=== PATIENT | female | born 2000 | race Caucasian/White ===

== ENCOUNTER 2023-09-09 13:12 | Emergency (ER) | payer MEDICAID, OTHER ==
[~2023-09-09] VITALS: Ht 177.8 cm; Wt 59.7 kg
[2023-09-09 14:37] VITALS: BP 132/66; PULSE 122; RESP 16; TEMP 99.3; O2SAT 98
[2023-09-09] MEDS ORDERED: CEPH500C PO (14:58)
[2023-09-09] MEDS ORDERED: NAPR-746 PO (14:58)
== END 2023-09-09 15:05 | disposition home or self-care (01) ==
LOC: ER 13:12
DX: J03.90 Acute tonsillitis, unspecified (principal); L04.0 Acute lymphadenitis of face, head and neck; Z79.899 Other long term (current) drug therapy

== ENCOUNTER 2023-09-17 07:32 | Emergency (ER) | payer MEDICAID ==
[~2023-09-17] VITALS: Ht 177.8 cm; Wt 59.6 kg
[~2023-09-17 07:32] MED LIST: CEPH500C PO; NAPR-746 PO
[2023-09-17 08:07] VITALS: BP 101/74; PULSE 99; RESP 18; TEMP 98.1; O2SAT 98
[2023-09-17] MEDS: cefTRIAXone SOD 1,000 MG VL IM ONE (08:24)
== END 2023-09-17 08:42 | disposition home or self-care (01) ==
LOC: ER 07:32
DX: O26.891 Other specified pregnancy related conditions, first trimester (principal); J03.90 Acute tonsillitis, unspecified; Z79.1 Long term (current) use of non-steroidal anti-inflammatories (NSAID); Z3A.01 Less than 8 weeks gestation of pregnancy
CPT/HCPCS: 96372; 99283; J0696

== ENCOUNTER 2023-09-23 07:49 | Emergency (ER) | payer MEDICAID ==
[~2023-09-23] VITALS: Ht 177.8 cm; Wt 60.2 kg
[2023-09-23] MEDS ORDERED: AZIT-185 PO (08:14)
[2023-09-23 08:19] VITALS: BP 113/81; PULSE 113; RESP 16; TEMP 99; O2SAT 99
== END 2023-09-23 08:25 | disposition home or self-care (01) ==
LOC: ER 07:53
DX: J02.9 Acute pharyngitis, unspecified (principal)